=== PATIENT | female | born 1995 | race Caucasian/White ===

== ENCOUNTER 2016-07-09 16:11 | Emergency (ER) | payer BC ==
--- NOTE | 2016-07-09 16:33 | EDPHY ---
H & P Stated Complaint: fatigue, n/v x 2 wks, diarrhea, lower abd pain, angie rt side Time Seen by Provider: 07/09/16 16:31 HPI/ROS: CHIEF COMPLAINT: Nausea and vomiting. 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 When her symptoms first presented, she vomited once daily in the evenings typically one hour following food. Over the past 2-3 days, she has been vomiting multiple times daily and has been unable to keep any fluids down. She also complains of diarrhea over the past 2-3 days. She denies fever, chest pain, shortness of breath, or urinary complaints. LNMP on 04/25. No recent international travel. Family history is significant for kidney stones and gall stones on mother's side. REVIEW OF SYSTEMS: Aside from elements discussed in the HPI, a comprehensive 10-point review of systems was reviewed and is negative. PAST MEDICAL HISTORY: Denies. SOCIAL HISTORY: [employer] student, arriving with mother, from [place]. No illicit drug, marijuana, tobacco, or alcohol use. PHYSICAL EXAM: VITAL SIGNS: Reviewed by me GENERAL: Well-developed, well-nourished, resting comfortably in no respiratory distress, pale. HEENT: Atraumatic. Eyes: No icterus, no injection. Mouth: Dry mucous membranes. No erythema or lesions. Neck: supple with no adenopathy. LUNGS: Clear to auscultation bilaterally, no wheezes, rhonchi or rales. CARDIAC: Regular rate and rhythm, no rubs, murmurs or gallops. ABDOMEN: Soft, nondistended, bowel sounds normal, RLQ tenderness to palpation, no rebound or guarding. BACK: Left CVA tenderness. EXTREMITIES: No trauma. No edema. Range of motion is normal throughout. NEURO: Alert and oriented, grossly nonfocal. SKIN: Warm and dry, no rash. PSYCHIATRIC: Normal mentation, no agitation. Portions of this note were transcribed by a medical office representative. I personally performed a history, physical exam, medical decision making, and confirmed accuracy of information the transcribed note. - Personal History LMP (Females 10-55): 15-21 Days Ago Current Tetanus/Diphtheria Vaccine: Unsure Current Tetanus Diphtheria and Acellular Pertussis (TDAP): Unsure - Medical/Surgical History Hx Asthma: Yes Hx Chronic Respiratory Disease: No Hx Diabetes: No Hx Cardiac Disease: No Hx Renal Disease: No Hx Cirrhosis: No Hx Alcoholism: No Hx HIV/AIDS: No Hx Splenectomy or Spleen Trauma: No Other PMH: asthma, depression - Social History Smoking Status: Never smoked Constitutional: Initial Vital Signs Temperature (C) 36.7 C 07/09/16 16:19 Heart Rate 80 07/09/16 16:19 Respiratory Rate 16 07/09/16 16:19 Blood Pressure 99/63 L 07/09/16 16:19 O2 Sat (%) 94 07/09/16 16:19 O2 Delivery Mode Room Air Allergies/Adverse Reactions: No Known Allergies Allergy (Unverified 07/09/16 16:19) Home Medications: Medication Instructions Recorded Dicyclomine [Bentyl 20 MG (*)] 20 mg PO TID PRN #15 tab 07/09/16 Hydrocodone/APAP 5/325 [Portland 1 tab PO Q6H PRN #10 tab 07/09/16 5/325 (RX)] Lexapro 07/09/16 Melatonin 07/09/16 Ondansetron Odt [Zofran Odt 4 mg 4 mg PO Q6 PRN #8 tab 07/09/16 (RX)] Zofran 07/09/16 Medical Decision Making - Diagnostics Imaging: Study: Ultrasound of the abdomen Indication: Pain, nausea, vomiting Results: Ultrasound of the abdomen was obtained. The results of the study are: Appendix not identified. The study was read by the radiologist, Dr. Maxim Jacob. I viewed the images myself on the PACS system. Study: Renal and pelvic ultrasound Indication: Pain, nausea, vomiting Results: Renal and pelvic ultrasound was obtained. The results of the study are: 1. Small left ovarian cyst/dominant follicle, with trace adjacent free fluid. 2. No ovarian torsion. 3. Normal uterus. The study was read by the radiologist, Dr. Maxim Jacob. I viewed the images myself on the PACS system. Study: CT of the abdomen and pelvis Indication: Pain, nausea, vomiting Results: CT of the abdomen and pelvis was obtained. The results of the study are : Normal appendix, trace free fluid in pelvis. The study was read by the radiologist, Dr. Maxim Jacob. I viewed the images myself on the PACS system. ED Course/Re-evaluation: IV established. 1L IV NS, 75mcg IV Fentanyl, and 4mg IV Zofran administered. I reviewed the patient's UA and lab results from [facility]. There is no evidence of UTI. Liver function tests are normal. I discussed these results with the patient and her mother. Plan to proceed with abdominal ultrasound for potential appendicitis and pelvic ultrasound for ovarian cyst. 1907: Ultrasound studies not demonstrate a clear reason for the patient's pain. Appendix is not visualized. There is no significant ovarian cyst to account for the patient's right-sided pain. Patient will have a CT scan ordered to further evaluate for appendicitis versus mesenteric adenitis versus bowel obstruction versus other causes of the patient' s ongoing discomfort and vomiting. 1946: CT results reported to me by Dr. Maxim Jacob, radiology. 2004: On reexamination, the patient is resting comfortable. Her abdominal exam is: soft abdomen, mild tenderness to both RLQ and LLQ with palpation. I discussed imaging results with the patient and my recommendation that she follow-up with a electromedical service engineer if her symptoms do not subside within the next 2-3 days. She understands customary return to the ED precautions. She will be discharged home with Bentyl, Zofran, and Portland to take as needed for nausea and abdominal pain. Discussed at length with mother in room. No clear cause for patients discomfort. Offered admission but they declined. Tolerating po fluids and crackers. No sings of acute surgical abdomen. Do not believe patient requires further observation or imaging studies. Differential Diagnosis: The differential diagnosis for the patient's abdominal pain was considered including but not limited to ovarian cyst, pelvic inflammatory disease, ovarian torsion, urinary tract infection, related complications, and appendicitis. - Data Points Laboratory Results: Laboratory Results 07/09/16 16:43 07/09/16 16:43 Medications Given: Discontinued Medications Dicyclomine HCl (Bentyl) 20 mg PO EDNOW ONE Stop: 07/09/16 20:06 Last Admin: 07/09/16 20:34 Dose: 20 mg Fentanyl (Sublimaze) 75 mcg IVP EDNOW ONE Stop: 07/09/16 16:55 Last Admin: 07/09/16 17:30 Dose: 75 mcg Hydromorphone HCl (Dilaudid) 0.5 mg IVP EDNOW ONE Stop: 07/09/16 20:06 Last Admin: 07/09/16 20:23 Dose: 0.5 mg Sodium Chloride (Ns) 1,000 mls @ 0 mls/hr IV ONCE ONE PRN Reason: Wide Open Stop: 07/09/16 16:55 Last Admin: 07/09/16 17:30 Dose: 1,000 mls Ondansetron HCl (Zofran) 4 mg IVP EDNOW ONE Stop: 07/09/16 16:55 Last Admin: 07/09/16 17:30 Dose: 4 mg Departure - Departure Disposition: Home, Routine, Self-Care Clinical Impression: Abdominal pain Qualifiers: Abdominal location: lower abdomen, unspecified Qualifier Code: (R10.30) Lower abdominal pain, unspecified Nausea & vomiting Qualifiers: Vomiting type: unspecified Vomiting Intractability: non-intractable Qualifier Code: (R11.2) Nausea with vomiting, unspecified Diarrhea Qualifiers: Diarrhea type: unspecified type Qualifier Code: (R19.7) Diarrhea, unspecified Condition: Good Instructions: Abdominal Pain (ED), Acute Nausea and Vomiting (ED), Acute Diarrhea (ED) Additional Instructions: 1. Take Zofran as directed for nausea. Take Portland as directed for pain. Take Bentyl as prescribed for spasms. 2. Eat a bland diet. Drink plenty of fluids as tolerated. 3. Call to schedule a follow-up appointment with gastroenterology. We have referred you to Dr. Birch. When scheduling, note that this is a follow-up to a visit to the Emergency Department. 4. Return to the Emergency Department if you experience high fever and chills, uncontrollable vomiting, blood in vomit or stool, Referrals: Sachin Birch MD, FACG [Medical Doctor] - As per Instructions [facility] [Provider Group] - As per Instructions Stand Alone Forms: School Excuse Prescriptions: Dicyclomine [Bentyl 20 MG (*)] 20 mg PO TID PRN #15 tab PRN Reason: abdominal cramping Hydrocodone/APAP 5/325 [Portland 5/325 (RX)] 1 tab PO Q6H PRN #10 tab PRN Reason: Pain Ondansetron Odt [Zofran Odt 4 mg (RX)] 4 mg PO Q6 PRN #8 tab PRN Reason: Nausea Report Scribed for: Cortney Lopes Report Scribed by: Diana Mackey Date of Report: 07/09/16 Time of Report: 16:33
[2016-07-09] MEDS ORDERED: NS 1,000 ML IV ONE (16:54)
[2016-07-09] MEDS ORDERED: fentaNYL 100 MCG/2 ML INJ IVP ONE (16:54)
[2016-07-09] MEDS ORDERED: ONDANSETRON 4 MG/2 ML VIAL IVP ONE (16:54)
[2016-07-09 17:01] LABS: % IMMATURE GRANULYOCYTES 1.4 % (0.0-1.1); ABSOLUTE IMMATURE GRANULOCYTES 0.04 10^3/uL (0.00-0.10); ADD DIFF? NO; ADD MORPH? NO; ADD SCAN? NO; ATYPICAL LYMPHOCYTE FLAG 0 (0-99); FRAGMENT RBC FLAG 0 (0-99); HEMATOCRIT 41.4 % (38.0-47.0); LEFT SHIFT FLG 20 (0-99); LIPEMIA HEMOLYSIS FLAG 90 (0-99); MEAN CELL HEMOGLOBIN 29.5 pg (27.9-34.1); MEAN CELL HEMOGLOBIN CONCENTR. 33.8 g/dL (32.4-36.7); MEAN CELL VOLUME 87.3 fL (81.5-99.8); MEAN PLATELET VOLUME 10.7 fL (8.7-11.7); PLATELET CLUMPS FLAG 20 (0-99); PLATELET COUNT 141 10^3/uL (150-400); RED BLOOD CELL COUNT 4.74 10^6/uL (4.18-5.33); RED CELL DISTRIBUTION WIDTH 12.1 % (11.5-15.2)
[2016-07-09 17:11] LABS: ALANINE AMINOTRANSFERASE 40 IU/L (9-52); ALBUMIN 4.4 g/dL (3.5-5.0); ALKALINE PHOSPHATASE 50 IU/L (38-126); ANION GAP 11 mEq/L (8-16); ASPARTATE AMINOTRANSFERASE 40 IU/L (14-46); BILIRUBIN,TOTAL 1.1 mg/dL (0.1-1.4); BILIRUBIN-CONJUGATED 0.6 mg/dL (0.0-0.5); BILIRUBIN-UNCONJUGATED 0.5 mg/dL (0.0-1.1); CARBON DIOXIDE 23 mEq/l (22-31); CHLORIDE 104 mEq/L (97-110); CREATININE 0.6 mg/dL (0.6-1.0); GLOMERULAR FILTRATION RATE > 60; GLUCOSE 92 mg/dL (70-100); SODIUM 138 mEq/L (134-144); TOTAL PROTEIN 7.5 g/dL (6.3-8.2)
[2016-07-09 18:37] LABS: COLOR YELLOW; LEUKOCYTE ESTERASE,URINE NEGATIVE (NEGATIVE); NITRITE,URINE NEGATIVE (NEGATIVE)
[2016-07-09 18:42] LABS: BACTERIA TRACE /hpf (NONE SEEN); MUCUS 4+ /lpf (NONE-1+)
--- NOTE | 2016-07-09 19:23 | US ---
Limited Abdominal (Appendiceal) Ultrasound Indication: Right lower quadrant pain. Evaluate for appendicitis. Technique: Right lower quadrant was evaluated with a high-resolution linear transducer utilizing gra ded compression. Findings: The appendix could not be identified. No free fluid or enlarged lymph nodes in the right lower quadrant. Impression: Appendix not identified. Comment: Results were called to Dr. Lopes at 7:00 p.m. on July 09, 2016.
[2016-07-09] MEDS ORDERED: IOPAMIDOL (ISOVUE-300) 100 ML BTL IV ONE (19:24)
--- NOTE | 2016-07-09 19:26 | US ---
Pelvic Ultrasound Indication: Pain. Technique: Transabdominal and transvaginal imaging. Comparison: None. Findings Transabdominal Imaging: The retroverted uterus is normal size, measuring 6.8 cm in length x 4.5 x 3. 3 cm. No adnexal mass. Transvaginal Imaging: The ovaries are normal size, with small peripheral follicles and normal blood flow on Color Doppler imaging. A small benign cyst/dominant follicle, measuring 2.2 cm, resides in t he left ovary. The right ovary measures 2.7 x 2.1 x 1.7 cm. The left ovary measures 2.5 x 1.5 x 1.5 cm. Trace free fluid resides adjacent to the left ovary. The uterus has a normal homogeneous myometrium. No uterine leiomyomas. The endometrial lining is ho mogeneous and thin (5 mm). Impressions 1. Small left ovarian cyst/dominant follicle, with trace adjacent free fluid. 2. No ovarian torsion. 3. Normal uterus. Comment: Results were discussed with Dr. Lopes at 7:00 p.m. on July 09, 2016.
--- NOTE | 2016-07-09 19:56 | CT ---
CT Scan of the Abdomen and Pelvis (With Contrast) Indication: Right lower quadrant and left flank pain. Technique: No oral or rectal contrast. 80 mL of Isovue-300 were given intravenously by machine daniel r injection. Multidetector helical CT imaging was performed from the diaphragm to the symphysis pubi s. Dose reduction techniques were utilized. Comparison: Pelvic sonogram dated July 09, 2016. Findings: The appendix is well visualized and normal. The small and large bowel pattern is normal. Trace free fluid resides in the pelvis. The small left ovarian cyst is better characterized on trans vaginal pelvic ultrasound. The urinary bladder is normal. The liver, spleen, pancreas, gallbladder, adrenal glands, and kidneys are normal. No nephrolithiasis , ureteral calculi, or hydroureteronephrosis. The lung bases are clear. The heart size is normal. The abdominal aorta is normal caliber. No bone lesions. Impressions 1. Normal appendix. 2. No evidence of inflammatory bowel disease or mesenteric edema. 3. Trace free fluid in the pelvis may be related to ruptured ovarian follicle or left ovarian cyst. Comment: Results were discussed with Dr. Lopes at 7:45 p.m. on July 09, 2016.
[2016-07-09] MEDS ORDERED: DICYCLOMINE 20 MG TAB PO ONE (20:05)
[2016-07-09] MEDS ORDERED: HYDROmorphONE/DILAUDID 1 MG/ML SYR IVP ONE (20:05)
[2016-07-09] MEDS ORDERED: ONDANSETRON 4 MG/2 ML VIAL ONE (20:31)
[2016-07-09] MEDS ORDERED: ONDANSETRON 4MG PREPACK#2 BTL TAKEHOME ONE (21:28)
[2016-07-09 21:32] VITALS: BP 128/78; PULSE 77; RESP 14; TEMP 98.4; O2SAT 97
== END 2016-07-09 21:30 | disposition home or self-care (01) ==
DX: R11.2 Nausea with vomiting, unspecified (principal); R10.30 Lower abdominal pain, unspecified; R19.7 Diarrhea, unspecified; J45.909 Unspecified asthma, uncomplicated
CPT/HCPCS: 96374; J1170; J2405; J3010; Q9967

== ENCOUNTER 2017-03-19 13:04 | Inpatient (IN) | payer BC ==
--- NOTE | 2017-03-19 13:17 | EDPHY ---
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 She has a history of depression and takes Lexapro. She is transgender and would like to transition to male. She states that she is having thoughts of riding her scooter into traffic. She tells me that she did try to kill herself 3 years ago but will not disclose details. She denies any recent drug or alcohol use. REVIEW OF SYSTEMS: Constitutional: denies: chills, fever, recent illness, recent injury EENTM: denies: blurred vision, double vision, nose congestion Respiratory: denies: cough, shortness of breath Cardiac: denies: chest pain, irregular heart rate, lightheadedness, palpitations Gastrointestinal/Abdominal: denies: abdominal pain, diarrhea, nausea, vomiting, blood streaked stools Genitourinary: denies: dysuria, frequency, hematuria, pain Musculoskeletal: denies: joint pain, muscle pain Skin: denies: lesions, rash, jaundice, bruising Neurological: denies: headache, numbness, paresthesia, tingling, dizziness, weakness Hematologic/Lymphatic: denies: blood clots, easy bleeding, easy bruising Immunologic/allergic: denies: HIV/AIDS, transplant EXAM: GENERAL: Well-appearing, well-nourished and in no acute distress. HEAD: Atraumatic, normocephalic. EYES: Pupils equal round and reactive to light, extraocular movements intact, sclera anicteric, conjunctiva are normal. ENT: TMs normal, nares patent, oropharynx clear without exudates. Moist mucous membranes. NECK: Normal range of motion, supple without lymphadenopathy or JVD. LUNGS: Breath sounds clear to auscultation bilaterally and equal. No wheezes rales or rhonchi. HEART: Regular rate and rhythm without murmurs, rubs or gallops. ABDOMEN: Soft, nontender, normoactive bowel sounds. No guarding, no rebound. No masses appreciated. BACK: No CVA tenderness, no spinal tenderness, step-offs or deformities EXTREMITIES: Normal range of motion, no pitting or edema. No clubbing or cyanosis. NEUROLOGICAL: Cranial nerves II through XII grossly intact. Normal speech, normal gait. 5/5 strength, normal movement in all extremities, normal sensation PSYCH: Depressed affect, answers all questions appropriately SKIN: Warm, dry, normal turgor, no visible rashes or lesions. (Larry Guardado) Constitutional: Initial Vital Signs Temperature (C) 37.4 C 03/19/17 13:32 Heart Rate 53 L 03/19/17 13:32 Respiratory Rate 16 03/19/17 13:32 Blood Pressure 107/70 03/19/17 13:32 O2 Sat (%) 99 03/19/17 13:32 O2 Delivery Mode Room Air Allergies/Adverse Reactions: No Known Allergies Allergy (Unverified 07/09/16 16:19) Home Medications: Medication Instructions Recorded Melatonin [Melatonin 3 MG (*)] 3 mg PO HS 07/09/16 Escitalopram Oxalate [Lexapro] 20 mg PO DAILY 30 Days #30 tablet 03/21/17 traZODone [traZODONE 50MG (*)] 50 mg PO HS 30 Days #15 03/21/17 Medical Decision Making ED Course/Re-evaluation: 1500: The patient is signed out to me at change of shift by Dr. Guardado. The patient awaiting placement/evaluation. (Venice Cowart) 3:00 p.m. patient care transferred to Dr. Venice Cowart. Patient medically cleared for psychiatric evaluation. (Larry Guardado) Differential Diagnosis: Partial list of the Differential diagnosis considered include but were not limited to; depression, suicidality, gender dysphoria and although unlikely based on the history and physical exam, I also considered infection, overdose, trauma. (Larry Guardado) - Data Points Laboratory Results: Laboratory Results 03/19/17 13:20 03/19/17 13:20 Medications Given: Discontinued Medications Cetirizine HCl (Zyrtec) 10 mg PO DAILY [facility] Stop: 09/16/17 08:59 Last Admin: 03/21/17 09:57 Dose: 10 mg Escitalopram Oxalate (Lexapro) 20 mg PO DAILY [facility] Stop: 09/16/17 08:59 Last Admin: 03/21/17 09:57 Dose: 20 mg Influenza Virus Vaccine Quadrival (Fluarix Quad [id number]) 0.5 ml IM .ONCE ONE Stop: 03/20/17 13:00 Last Admin: 03/20/17 13:49 Dose: 0.5 ml Melatonin (Melatonin) 3 - 6 mg PO [facility] Stop: 09/15/17 23:29 Last Admin: 03/19/17 23:36 Dose: Not Given Trazodone HCl (Trazodone) 25 mg PO [facility] Stop: 09/16/17 20:59 Last Admin: 03/20/17 20:27 Dose: 25 mg Departure - Departure Disposition: [facility] IP Clinical Impression: Suicidal ideation Condition: Fair
[2017-03-19 13:45] LABS: ANION GAP 12 mEq/L (8-16); CARBON DIOXIDE 25 mEq/l (22-31); CHLORIDE 103 mEq/L (97-110); CREATININE 0.8 mg/dL (0.6-1.0); ETHANOL SERUM < 10 mg/dL (0-10); GLOMERULAR FILTRATION RATE > 60; GLUCOSE 83 mg/dL (70-100); POTASSIUM 4.1 mEq/L (3.5-5.2); SODIUM 140 mEq/L (134-144)
[2017-03-19 13:47] LABS: % IMMATURE GRANULYOCYTES 0.7 % (0.0-1.1); ABSOLUTE IMMATURE GRANULOCYTES 0.03 10^3/uL (0.00-0.10); ADD DIFF? NO; ADD MORPH? NO; ADD SCAN? NO; ATYPICAL LYMPHOCYTE FLAG 60 (0-99); FRAGMENT RBC FLAG 0 (0-99); HEMATOCRIT 40.9 % (38.0-47.0); HEMOGLOBIN 13.6 g/dL (12.6-16.3); LEFT SHIFT FLG 0 (0-99); LIPEMIA HEMOLYSIS FLAG 80 (0-99); MEAN CELL HEMOGLOBIN 29.7 pg (27.9-34.1); MEAN CELL HEMOGLOBIN CONCENTR. 33.3 g/dL (32.4-36.7); MEAN CELL VOLUME 89.3 fL (81.5-99.8); MEAN PLATELET VOLUME 10.9 fL (8.7-11.7); PLATELET CLUMPS FLAG 20 (0-99); PLATELET COUNT 224 10^3/uL (150-400); RED BLOOD CELL COUNT 4.58 10^6/uL (4.18-5.33); RED CELL DISTRIBUTION WIDTH 11.9 % (11.5-15.2)
[2017-03-19] MEDS ORDERED: MAGNESIUM HYDROXIDE 30 ML UDCUP PO PRN (23:02)
[2017-03-19] MEDS ORDERED: ACETAMINOPHEN 325 MG TAB PO PRN (23:02)
[2017-03-19] MEDS ORDERED: MAG HYDROX/AL HYDROX/SIMETH 30 ML UDCUP PO PRN (23:02)
[2017-03-19] MEDS ORDERED: NICOTINE POLACRILEX 2 MG GUM B PRN (23:02)
[2017-03-19] MEDS ORDERED: LORazepam 0.5 MG TAB PO PRN (23:02)
[2017-03-19] MEDS ORDERED: MELATONIN 3 MG TAB PO SCH (23:30)
[2017-03-20 06:33] VITALS: O2SAT 97
--- NOTE | 2017-03-20 09:06 | GCON ---
[f rep st] CONSULTATION DATE OF CONSULTATION: 03/20/2017 REFERRING PHYSICIAN: Armando Bautista MD REASON FOR CONSULTATION: I am asked by Dr. Bautista to assess and assist in the care of this patient who is admitted to the Behavioral Health Unit with suicidal ideation. HISTORY: The patient is a 21-year-old college student, has a long history of depression and prior carrasco icide attempt. She initially presented to the [facility] Service at the [facility] yesterday with suicidal ideation, was put on M1 hold, transferred to this hospital, and is now admitted to the Behavioral Health Unit. She is being evaluated by the mental health team for this is keith. She does not have any symptoms that sound at all like a psychosis or psychotic features to depr ession. She has not been using street drugs or significant alcohol. The patient is on treatment for her depression. Physically the patient does admit to having had recently a cold-type syndrome with stuffy nose and sl ight cough, and these symptoms have completely resolved. There is no fever, chest pain, or shortness of breath. No sinus pains. No pharyngeal symptoms. Other than that, she has no symptoms recently of any acute medical issues. REVIEW OF SYSTEMS: She has some chronic exertion-induced asthma but does not require very frequent u se of her albuterol inhaler. The rest of a comprehensive 10-system review is unrevealing. PAST MEDICAL HISTORY: Limited to her depression, 1 prior suicidal attempt, and her exertional asthma . No surgeries, no hospitalizations. No other significant medical problems. FAMILY HISTORY: She says her mother just had a knee surgery, but otherwise family members are health y. SOCIAL HISTORY: The patient is a student at the [employer]. She does not use significan t alcohol, tobacco, or any street drugs. The patient does state that she is a transgender and is hop ing eventually to transition to male but still going by Luz and still refers to herself as jami antony. MEDICATIONS: Her home medicines include Zyrtec, Lexapro, melatonin for sleep, and intermittent use o f albuterol when she is doing heavy exertion. ALLERGIES: She has no medicine allergies. PHYSICAL EXAMINATION: VITAL SIGNS: Normal without fever. GENERAL: She is a pleasant young woman w ho interacts with me quite normally. She has no signs of psychosis or confusion. No tremors. No si gns of withdrawal or intoxication. Her skin is warm and dry with good color. Respirations are relax ed. Her demeanor is relaxed. Her speech and language function are normal. No pressured speech. HE ENT: Shows no evidence of any kind of injury or other concerning issues. LUNGS: Clear. HEART: Re gular. ABDOMEN: Normal. Thyroid not palpable. MUSCULOSKELETAL: No edema. Joints unremarkable. No rashes. LABORATORY DATA: Done in the ER included a CBC, test, metabolic panel, and drug screen and alcohol all normal. IMPRESSION: 1. Suicidal ideation in a young woman with depression, on antidepressant therapy. 2. Chronic exercise-induced asthma not currently active. 3. Recent mild upper respiratory infection symptoms. Symptoms have resolved. RECOMMENDATIONS: At this time, I have no specific recommendations, and I expect her to do quite well in terms of her physical health during her stay here, but will remain available for consultation if any other issues arise. /[id number]/MODL
[2017-03-20] MEDS: CETIRIZINE 10 MG TAB PO SCH (10:13)
[2017-03-20] MEDS: ESCITALOPRAM OXALATE 10 MG TAB PO SCH (10:13)
[2017-03-20] MEDS ORDERED: MELATONIN 3 MG TAB PO PRN (11:55)
[2017-03-20] MEDS ORDERED: ALBUTEROL 200 PUFFS/18 GM MDI IH PRN (11:57)
[2017-03-20] MEDS ORDERED: FLU VACC QS 2017-18 (3YR+)/PF 0.5 ML SYR (FLUARIX QUAD) IM ONE (12:59)
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
--- NOTE | 2017-03-20 14:24 | SOAPPROG ---
SOAP Progress Note Assessment/Plan: Assessment: Plan: Objective: Vital Signs Temp Pulse Resp BP Pulse Ox 37.1 C 68 14 105/68 97 03/20/17 06:00 03/20/17 06:00 03/20/17 06:00 03/20/17 06:00 03/20/17 06:00 Spoke to patients father on the phone. He reports patient has had depressive symptoms in the past, hasn't observed manic symptoms before, and was unaware that she was having worsening symptoms. Reports he is supportive and can visit patient and assist her with follow up. Discussed common symptoms of depression and monitoring for bipolar symptoms while patient is taking an antidepressant, and plan to evaluate patient on unit and possibly discharge tomorrow if stable with follow up at [facility]. ICD10 Worksheet Patient Problems: Problems Problem Status Onset Asthma Acute Major depressive disorder Acute Social phobia Acute Suicidal ideation Acute
[2017-03-20] MEDS ORDERED: traZODone 50 MG TAB PO SCH (21:00)
[2017-03-21] MEDS: ESCITALOPRAM OXALATE 10 MG TAB PO SCH (09:57)
[2017-03-21] MEDS: CETIRIZINE 10 MG TAB PO SCH (09:57)
[2017-03-21 11:41] VITALS: BP 87/56; PULSE 60; RESP 14; TEMP 98.3
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
== END 2017-03-21 13:28 | disposition home or self-care (01) | DRG 885 ==
LOC: BBEH 21:30
PROVIDERS: ADMIT Psychiatry & Neurology Psychiatry; ATTEND Psychiatry & Neurology Psychiatry
DX: F33.2 Major depressive disorder, recurrent severe without psychotic features (principal); F64.0 Transsexualism; Z23 Encounter for immunization; J45.909 Unspecified asthma, uncomplicated
CPT/HCPCS: 80305; G0008; G0480